=== PATIENT | female | born 2000 | race Hispanic/Latino ===

== ENCOUNTER 2021-08-03 23:03 | Observation (INO) | payer BC, MEDICAID, OTHER ==
[~2021-08-03] VITALS: Ht 165.1 cm; Wt 103.2 kg
[2021-08-03 23:54] LABS: APPEARANCE,URINE Clear (CLEAR); BILIRUBIN,URINE Negative (NEGATIVE); COLOR,URINE Yellow (YELLOW); GLUCOSE, URINE (UA) Negative (NEGATIVE); KETONES,URINE Negative (NEGATIVE); LEUKOCYTE ESTERASE ,URINE Negative (NEGATIVE); NITRATE,URINE Negative (NEGATIVE); OCCULT BLOOD,URINE Negative (NEGATIVE); PROTEIN,URINE Negative (NEGATIVE); UROBILINOGEN,URINE 0.2 mg/dL (0.2-1.0)
[2021-08-03 23:59] LABS: HCG,QUAL RESULT NEGATIVE (NEGATIVE)
[2021-08-04] MEDS ORDERED: MAG/ALUM/SIMETH 30 ML UDCUP PO ONE
[2021-08-04] MEDS ORDERED: LIDOCAINE HCL 2% VISCOUS 15 ML UDCUP PO ONE
[2021-08-04] MEDS ORDERED: ONDANSETRON 4MG INJ IVP ONE
[2021-08-04] MEDS ORDERED: DICYCLOMINE HCL 10 MG/5 ML ML PO ONE
[2021-08-04] MEDS ORDERED: FAMOTIDINE 20MG TAB PO ONE
[2021-08-04 00:23] LABS: CREATININE 0.7 mg/dL (0.5-1.5); POTASSIUM 3.6 mmol/L (3.5-5.1)
[2021-08-04 00:30] LABS: BASOPHILS % (AUTO) 0.4 % (0.0-5.0); EOSINOPHILS % (AUTO) 0.2 % (0.0-8.0); LYMPHOCYTES % (AUTO) 9.9 % (21.0-51.0); MEAN CORPUSCULAR HEMOGLOBIN 26.3 pg (27.0-33.0); MEAN CORPUSCULAR HGB CONC 31.9 g/dL (32.0-36.0); MEAN CORPUSCULAR VOLUME 82.5 fL (79-99); MONOCYTES % (AUTO) 5.7 % (3.0-13.0); NEUTROPHILS % (AUTO) 83.3 % (40.0-77.0); PLATELET COUNT (AUTO) 355 K/uL (130-400); RED BLOOD CELL COUNT(AUTO) 5.21 MIL/uL (4.00-5.50); RED CELL DISTRIBUTION WIDTH 15.2 % (11.0-15.5); WHITE BLOOD COUNT (AUTO) 17.7 K/uL (4.8-10.8)
[2021-08-04 00:32] LABS: ALBUMIN 3.7 g/dL (3.5-5.0); BILIRUBIN,TOTAL 0.2 mg/dL (0.2-1.0); TOTAL PROTEIN, SERUM 8.1 g/dL (6.0-8.3)
[2021-08-04] MEDS ORDERED: ZOSYN 3.375GM +NS 50ML IV ONE (03:00)
[2021-08-04] MEDS ORDERED: KETOROLAC 30MG VIAL (30MG/ML) IVP ONE (03:00)
[2021-08-04] MEDS: ZOSYN 3.375GM+NS 50ML 50 ML IV SCH ×3 (04:17→21:32)
[2021-08-04] MEDS: 0.9%NACL 1000ML 1,000 ML IV SCH ×2 (04:23→14:33)
[2021-08-04] MEDS ORDERED: ONDANSETRON 4MG INJ IV PRN (04:30)
[2021-08-04] MEDS ORDERED: MORPHINE 2 MG SYG IV PRN (04:30)
[2021-08-04] MEDS ORDERED: ACETAMINOPHEN 325 MG TAB PO PRN ×2 (04:30)
[2021-08-04 04:57] VITALS: BP 119/65
[2021-08-04 06:23] LABS: BASOPHILS % (AUTO) 0.4 % (0.0-5.0); EOSINOPHILS % (AUTO) 0.6 % (0.0-8.0); HEMATOCRIT 39.8 % (36-48); LYMPHOCYTES % (AUTO) 28.5 % (21.0-51.0); MEAN CORPUSCULAR HEMOGLOBIN 26.2 pg (27.0-33.0); MEAN CORPUSCULAR HGB CONC 31.9 g/dL (32.0-36.0); MEAN CORPUSCULAR VOLUME 82.1 fL (79-99); MONOCYTES % (AUTO) 5.5 % (3.0-13.0); NEUTROPHILS % (AUTO) 64.8 % (40.0-77.0); PLATELET COUNT (AUTO) 326 K/uL (130-400); RED BLOOD CELL COUNT(AUTO) 4.85 MIL/uL (4.00-5.50); RED CELL DISTRIBUTION WIDTH 15.3 % (11.0-15.5); WHITE BLOOD COUNT (AUTO) 13.9 K/uL (4.8-10.8)
[2021-08-04 06:40] LABS: ALBUMIN 3.6 g/dL (3.5-5.0); BILIRUBIN,TOTAL 0.5 mg/dL (0.2-1.0); CREATININE 0.6 mg/dL (0.5-1.5); POTASSIUM 3.8 mmol/L (3.5-5.1); TOTAL PROTEIN, SERUM 7.7 g/dL (6.0-8.3)
[2021-08-04 07:35] LABS: ERYTHROCYTE SEDIMENTATION RATE 20 MM/HR (0-20)
[2021-08-04 07:49] VITALS: BP 100/56
[2021-08-04] MEDS ORDERED: FAMOTIDINE 20MG VIAL IV SCH (09:00)
[2021-08-04 12:00] VITALS: BP 114/79
[2021-08-04 16:00] VITALS: BP 113/66
[2021-08-04 20:07] VITALS: BP 118/72
[2021-08-04 23:35] VITALS: BP 116/67
[2021-08-05 04:02] VITALS: BP 110/83
[2021-08-05 05:07] LABS: BASOPHILS % (AUTO) 0.7 % (0.0-5.0); EOSINOPHILS % (AUTO) 2.7 % (0.0-8.0); HEMATOCRIT 37.9 % (36-48); LYMPHOCYTES % (AUTO) 37.1 % (21.0-51.0); MEAN CORPUSCULAR HEMOGLOBIN 26.6 pg (27.0-33.0); MEAN CORPUSCULAR HGB CONC 32.5 g/dL (32.0-36.0); MONOCYTES % (AUTO) 5.4 % (3.0-13.0); NEUTROPHILS % (AUTO) 53.9 % (40.0-77.0); PLATELET COUNT (AUTO) 298 K/uL (130-400); RED BLOOD CELL COUNT(AUTO) 4.62 MIL/uL (4.00-5.50); RED CELL DISTRIBUTION WIDTH 15.4 % (11.0-15.5); WHITE BLOOD COUNT (AUTO) 9.4 K/uL (4.8-10.8)
[2021-08-05 05:35] LABS: CREATININE 0.7 mg/dL (0.5-1.5); POTASSIUM 3.8 mmol/L (3.5-5.1)
[2021-08-05 08:00] VITALS: BP 126/65
[2021-08-05 12:00] VITALS: BP 118/77
== END 2021-08-05 16:05 | disposition home or self-care (01) ==
LOC: EDH 23:03 → EDHIP 08-04 04:05 → 3DH 08-04 05:18
PROVIDERS: ADMIT Internal Medicine; ATTEND Internal Medicine
DX: K80.20 Calculus of gallbladder without cholecystitis without obstruction (principal); K80.50 Calculus of bile duct without cholangitis or cholecystitis without obstruction; D72.829 Elevated white blood cell count, unspecified; R74.01 Elevation of levels of liver transaminase levels; E66.9 Obesity, unspecified; Z98.891 History of uterine scar from previous surgery
CPT/HCPCS: 36415 ×3; 76705; 78226; 80048; 80053 ×2; 81003; 81025; 83690; 84145; 84484; 85025 ×3; 85651; 96365; 96366 ×2; 96375; 99284; A9537; G0378 ×36; J1885; J2405; J2543 ×3; J7030